=== PATIENT | male | born 1990 | race Caucasian/White ===

== ENCOUNTER 2020-01-03 00:37 | Observation (INO) | payer MEDICAID, SELFPAY ==
[2020-01-03 00:40] VITALS: BP 128/79; PULSE 68; RESP 16; TEMP 37; O2SAT 99; BMI 20.9
--- NOTE | 2020-01-03 01:02 | W.ED.PSYCH ---
HPI - Psych General: Chief Complaint: Psychiatric Symptoms Stated Complaint: SI/ DIRECT ADMIT Time Seen by Provider: 01/03/20 00:38 Source: patient and EMS Mode of arrival: EMS Limitations: no limitations History of Present Illness: HPI Narrative: 29-year-old male who presents here from [facility] for psych admission. Patient was medically cleared there and they spoke to Dr. Barnhart of psychiatry who is excepting. Patient states that he is suicidal with no plan. Associated symptoms: Reports depression and suicidal ideation Review of Systems Const: Denies: fever(s), chills, body aches or change in appetite Eyes: Denies: blurry vision or eye discomfort ENMT: Denies: throat pain or dental pain Card: Denies: chest pain Resp: Denies: dyspnea GI: Denies: abdominal pain, nausea, vomiting or diarrhea : Denies: dysuria Musc: Denies: neck pain or back pain Skin/Breast: Denies: rash Neuro: Denies: headache(s) Psych: Reports: depression and suicidal ideation Wilfredo/Lymph: Denies: easy bruising All/Imm: Denies: urticaria PFSH ED PFSH: Social History Smoking and tobacco status: never smoked Physical Exam Const: COMMON NORMALS: no acute distress, patient oriented x3 and healthy appearing HENMT: COMMON NORMALS: normocephalic and atraumatic HEAD & SCALP: normocephalic and atraumatic Eye: COMMON NORMALS: Equal, round and reactive pupils present and EOMs intact bilaterally PUPIL: Yes Equal, round and reactive pupils present Neck/C-Spine: COMMON NORMALS: full ROM and supple Chest: COMMONS NORMALS: normal inspection of the chest and normal palpation of entire chest wall Resp: COMMON NORMALS: normal respiratory effort, No retractions, No use of accessory muscles and clear to auscultation bilaterally AUSCULTATION: clear to auscultation bilaterally Cardio: COMMON NORMALS: regular rate, regular rhythm and No murmurs present (Cardio) RATE: regular rate RHYTHM: regular rhythm GI: COMMON NORMALS: Normal to inspection, nondistended, normoactive bowel sounds present, Soft to palpation, non-tender and no masses PALPATION: Yes Soft to palpation Extremity: COMMON NORMALS: normal to inspection and full ROM Neuro: COMMON NORMALS: patient oriented x3, moves all extremities and no focal motor deficits Psych: COMMON NORMALS: mental status grossly normal and cooperative THOUGHT CONTENT: Yes Suicidality present Skin: COMMON NORMALS: no rashes or lesions noted and no wounds GENERAL SKIN EXAM: no rashes or lesions noted MDM - Psych MDM Narrative: Medical decision making narrative: Patient presents here with suicidal ideation. Patient was accepted by Dr. Barnhart and will be admitted to the psych unit. Patient was cleared at [facility] and he is well-appearing here. Discharge Plan Discharge Patient Disposition: Admitted As Inpatient Admit Provider: Judd Freeman Clinical Impression: Suicidal ideation Condition: Stable Coding Level of Care Code ED Air Turning Machine Feeder for Mireya Durbin
[2020-01-03 01:32] VITALS: BP 128/79; PULSE 68; RESP 16; TEMP 37; O2SAT 99
[2020-01-03 02:21] VITALS: BP 105/68; PULSE 67; RESP 16; TEMP 36.3; O2SAT 99
[2020-01-03 06:00] VITALS: BP 95/59; PULSE 54; RESP 15; TEMP 36.6; O2SAT 98
[2020-01-03 13:38] VITALS: BP 106/64; PULSE 63; RESP 18; TEMP 36.9; O2SAT 99
--- NOTE | 2020-01-03 17:15 | PM.NHP ---
Providers/Chief Complaint Admitting Physician: Judd Freeman MD Chief Complaint: SI/ DIRECT ADMIT HPI NPU History of Present Illness Chief complaint: What do you mean you do not know anything about me.? Are you telling me you do not have my documentation? Bienvenido Weeks is a 29 year old male who was admitted to the neuropsychiatric unit on a voluntary basis on transfer from [facility] emergency room. According to available records, he presented to the emergency room of [facility] in [place] stating that he has had suicidal ideation for the past 15 years, but recently they have been more pervasive. He reported that he had been eating and sleeping less, feeling more helpless and hopeless, and it was his plan to jump off a bridge. It is noted that he has not made any attempt to harm himself recently or in the past. Records from [facility] indicate that he had been admitted to the psychiatric unit at that hospital in September of this year. No records regarding that hospitalization were provided. He apparently was discharged on lithium 450 mg twice daily. He also takes Atarax. His laboratories on presentation to their emergency room were remarkable for a urine drug screen positive only for marijuana. His lithium level was 0.3 and his blood alcohol level was below the measurable limit. Records from the emergency room indicate that the patient had been self harming by damaging his joints by obsessively skateboarding and by rectal stimulation through impaling and help himself with objects. At that time he reported rare hallucinations. There is an obscure story of a suicidal thought of jumping off of a bridge on a specific day which is the one-year anniversary and connection with a human trafficking case in [place] (someone else was the person of interest) (. The risk assessment done in the emergency room indicated that he had had suicidal ideation but had no history of suicide attempts and a rescue motivation of I am alive for my mom. Records also indicate that there was an affidavit for commitment on his chart. However none was provided and we cannot confirm that in fact and affidavit for imminent risk was actually present. The patient is absolutely incensed at my questions regarding his mental health history and believes that that information should have been acquired prior to our interview. He felt that my questions regarding symptoms of depression and jessee were demeaning to him and that his presence here was of little use or value. He denied active suicidal ideation. He implied that he had a medical condition that resulted in bleeding from his rectum. He verbalized that this was the problem that should be attended to and that I should be giving him something for his bipolar disorder though he refused to discuss the history of that diagnosis, where the diagnosis was made, the presence of symptoms associated with it to justify such a treatment. He also made it clear that none of these medications would be effective if he were not allowed to continue the use of his medical marijuana. He did not provide a card indicating of that he had been prescribed this medication and for what reason. 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 When he was informed that he was a voluntary patient, he immediately demanded to leave AGAINST MEDICAL ADVICE. He stated that he had no suicidal or homicidal ideation and it was his intent to return to [place] where he could acquire the medical care that he deserved. When it was suggested that he return to see Dr. Garcia at the [facility], he replied that Dr. Garcia did not treat him for that type of problem. Medical history according to records provided by [facility]: Patient is a medical history of gastroesophageal reflux disease. Surgical history is positive for hernia repair. He also had a colonoscopy performed on 12/14/2019. Family history was recorded as healthy in biological family. Review of Systems Narrative: Patient refused to participate in review of systems. Meds NPU Home Medications Medication Instructions Recorded Confirmed Last Taken Type No Known Home Medications 01/03/20 01/03/20 Unknown History Allergies Allergy/AdvReac Type Severity Reaction Status Date / Time No Known Allergies Allergy Verified 01/03/20 00:45 [facility] NPU PFSH: Social History Smoking and tobacco status: never smoked Mental Status Exam MSE Comments: Mental Status Exam: The patient is an alert interpersonally engaged male appearing approximately his stated age. Eye contact is good. Information provided is internally consistent though not consistent with that in his chart. His attitude is ridiculing and dismissive. Appearance: hygiene is good; no gross neurological deficits., gait is unremarkable; AIMS=0 Speech: Speech is of normal rate and rhythm and easily understood. Thought processes: Thought processes are abstract. Judgment is adequate for safety. Associations: intact Psychotic processes: There is no indication of guarding or paranoia. There is no attention to the internal stimuli. Auditory and visual hallucinations are denied. Judgment: Insight is fair. Problem solving skills are adequate for safety. Orientation: The patient is oriented to person, place time and situation. Memory: no deficits noted in immediate, intermediate, or remote spheres. Attention: The patient is alert and interpersonally engaged. Language: Verbalizations are coherent. Fund of knowledge: Fund of knowledge is adequate. Affect/Mood: Affect is consistent with a euthymic mood. He denies suicidal ideation Affective range is appropriate. Psychosis: perception unimpaired except through significant cognitive distortion; reality testing intact. Vitals/I&O/Wt Last Vital Signs Temp 98.5 F 01/03/20 13:38 Pulse 63 01/03/20 13:38 Resp 18 01/03/20 13:38 BP 106/64 01/03/20 13:38 Pulse Ox 99 01/03/20 13:38 Weight last 48 hrs Weight 68.039 kg A&P Assessment and plan (1) Suicidal ideation: Status: Resolved Involuntary Hold Information 96 Hour Hold: 96 Hour Involuntary Admission: No Attestations NPU Medical Necessity Statement*: Patient signed out AGAINST MEDICAL ADVICE. Coding Level of Care Code Acute Television Station Manager for Mireya Durbin Diagnoses Suicidal ideation R48.192
[2020-01-03 21:15] VITALS: BP 106/64; PULSE 63; RESP 18; TEMP 36.9; O2SAT 99
--- NOTE | 2020-01-04 08:30 | P.DS_ITS ---
Diagnoses at Discharge Discharge Diagnosis (1) Suicidal ideation: Status: Resolved Problem details: Patient stated that he was free of suicidal or homicidal ideation, auditory or visual hallucinations, and wanted to be discharged from the hospital even though his advice was to remain for further assessment. He was not an imminent danger to self or others based on current information. He was permitted to sign out AGAINST MEDICAL ADVICE. Reason for Visit Reason for Visit: SI/ DIRECT ADMIT Brief History: Chief complaint: What do you mean you do not know anything about me.? Are you telling me you do not have my documentation? Bienvenido Weeks is a 29 year old male who was admitted to the neuropsychiatric unit on a voluntary basis on transfer from [facility] emergency room. According to available records, he presented to the emergency room of [facility] in [place] stating that he has had suicidal ideation for the past 15 years, but recently they have been more pervasive. He reported that he had been eating and sleeping less, feeling more helpless and hopeless, and it was his plan to jump off a bridge. It is noted that he has not made any attempt to harm himself recently or in the past. Records from [facility] indicate that he had been admitted to the psychiatric unit at that hospital in September of this year. No records regarding that hospitalization were provided. He apparently was discharged on lithium 450 mg twice daily. He also takes Atarax. His laboratories on presentation to their emergency room were remarkable for a urine drug screen positive only for marijuana. His lithium level was 0.3 and his blood alcohol level was below the measurable limit. Records from the emergency room indicate that the patient had been self harming by damaging his joints by obsessively skateboarding and by rectal stimulation through impaling and help himself with objects. At that time he reported rare hallucinations. There is an obscure story of a suicidal thought of jumping off of a bridge on a specific day which is the one-year anniversary and connection with a human trafficking case in [place] (someone else was the person of interest) (. The risk assessment done in the emergency room indicated that he had had suicidal ideation but had no history of suicide attempts and a rescue motivation of I am alive for my mom. Records also indicate that there was an affidavit for commitment on his chart. However none was provided and we cannot confirm that in fact and affidavit for imminent risk was actually present. The patient is absolutely incensed at my questions regarding his mental health history and believes that that information should have been acquired prior to our interview. He felt that my questions regarding symptoms of depression and jessee were demeaning to him and that his presence here was of little use or value. He denied active suicidal ideation. He implied that he had a medical c ondition that resulted in bleeding from his rectum. He verbalized that this was the problem that should be attended to and that I should be giving him something for his bipolar disorder though he refused to discuss the history of that diagnosis, where the diagnosis was made, the presence of symptoms associated with it to justify such a treatment. He also made it clear that none of these medications would be effective if he were not allowed to continue the use of his medical marijuana. He did not provide a card indicating of that he had been prescribed this medication and for what reason. 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 When he was informed that he was a voluntary patient, he immediately demanded to leave AGAINST MEDICAL ADVICE. He stated that he had no suicidal or homicidal ideation and it was his intent to return to [place] where he could acquire the medical care that he deserved. When it was suggested that he return to see Dr. Garcia at the [facility], he replied that Dr. Garcia did not treat him for that type of problem. Medical history according to records provided by [facility]: Patient is a medical history of gastroesophageal reflux disease. Surgical history is positive for hernia repair. He also had a colonoscopy performed on 12/14/2019. Family history was recorded as healthy in biological family. Hospital Course Hospital Course The patient was admitted to the adult psychiatric unit on a voluntary basis. He was entered into the full array of individual and group therapies as part of the unit protocol. He was provided access to 24-hour care from trained to clinical nursing staff and received a medical assessment prior to admission. On initial interview, the patient was quite displeased with his care and made his feelings known that he wanted to be discharged. He was informed that he was a voluntary patient and was not being held here against his will. We explained the advice that he remain here and to have his psychiatric diagnosis assessed and treatment initiated. He was adamant that he be allowed to leave even though it was AGAINST MEDICAL ADVICE. Involuntary Hold Information 96 Hour Hold: 96 Hour Involuntary Admission: No Mental Status Exam MSE Comments: Comments: Mental Status Exam: The patient is an alert interpersonally engaged male appearing approximately his stated age. Eye contact is good. Information provided is internally consistent though not consistent with that in his chart. His attitude is ridiculing and dismissive. Appearance: hygiene is good; no gross neurological deficits., gait is unremarkable; AIMS=0 Speech: Speech is of normal rate and rhythm and easily understood. Thought processes: Thought processes are abstract. Judgment is adequate for safety. Associations: intact Psychotic processes: There is no indication of guarding or paranoia. There is no attention to the internal stimuli. Auditory and visual hallucinations are denied. Judgment: Insight is fair. Problem solving skills are adequate for safety. Orientation: The patient is oriented to person, place time and situation. Memory: no deficits noted in immediate, intermediate, or remote spheres. Attention: The patient is alert and interpersonally engaged. Language: Verbalizations are coherent. Fund of knowledge: Fund of knowledge is adequate. Affect/Mood: Affect is consistent with a euthymic mood. He denies suicidal ideation Affective range is appropriate. Psychosis: perception unimpaired except through significant cognitive distortion; reality testing intact. Discharge Data Vitals: Last Vital Signs Temp 98.5 F 01/03/20 21:15 Pulse 63 01/03/20 21:15 Resp 18 01/03/20 21:15 BP 106/64 01/03/20 21:15 Pulse Ox 99 01/03/20 21:15 Discharge Plan Discharge Patient Disposition: Left Against Medical Advice Condition: Stable Prescriptions: No Action No Known Home Medications RF: 0 Discharge Orders: Discharge Order (Routine); Ordered 01/03/20 Ordered By: Leandro Byers Activity Restrictions/Additional Instructions: Patient left AMA, physician aware, documents signed belongings given. Stand Alone Forms: Against Medical Advice Discharge Date/Time: 01/03/20 17:45 Discharge Attestations NPU Time Spent in Discharge Care*: less than 30 min Coding Level of Care Code Acute Renal Nurse for Mireya Durbin Diagnoses Suicidal ideation R41.727
== END 2020-01-03 17:45 | disposition left against medical advice (07) ==
LOC: ER 00:54 → NP 01:03
PROVIDERS: Admitting Provider Psychiatry & Neurology Psychiatry; Visit Provider Psychiatry & Neurology Psychiatry
DX: R45.851 Suicidal ideations (principal); Z53.29 Procedure and treatment not carried out because of patient's decision for other reasons
CPT/HCPCS: 12345; 99284; 99285; G0378